=== PATIENT | female | born 1985 | race African-American/Black ===

== ENCOUNTER 2025-04-23 12:52 | Emergency (ER) | payer SELFPAY ==
[~2025-04-23] VITALS: Ht 170.2 cm; Wt 81.0 kg
[~2025-04-23 12:52] MED LIST: MOTRIN
[2025-04-23 13:03] VITALS: O2SAT 99
[2025-04-23] MEDS: LIDOCAINE 5% PATCH TOP SCH (14:33)
[2025-04-23] MEDS: ACETAMINOPHEN 500MG TABLET PO ONE (14:33)
[2025-04-23] MEDS: IBUPROFEN 600MG TABLET PO ONE (14:33)
[2025-04-23] MEDS ORDERED: LIDO700A30 TP (16:22)
[2025-04-23] MEDS ORDERED: IBUP-2029 MT (16:22)
[2025-04-23] MEDS ORDERED: ONDA4TAB50 MT (16:22)
[2025-04-23 16:31] VITALS: BP 131/72; PULSE 76; RESP 18; TEMP 36.7; O2SAT 99
[2025-04-23] MEDS: ONDANSETRON 4MG ODT PO ONE (16:31)
== END 2025-04-23 16:43 | disposition home or self-care (01) ==
LOC: ER 12:52
DX: S06.0X0A Concussion without loss of consciousness, initial encounter (principal); M54.50 Low back pain, unspecified; J45.909 Unspecified asthma, uncomplicated; F10.90 Alcohol use, unspecified, uncomplicated; V89.2XXA Person injured in unspecified motor-vehicle accident, traffic, initial encounter; Y93.89 Activity, other specified; Y92.410 Unspecified street and highway as the place of occurrence of the external cause; Y99.8 Other external cause status; Y90.9 Presence of alcohol in blood, level not specified
CPT/HCPCS: 99284; 70450; 72100; Q0162